=== PATIENT | male | born 1960 | race Caucasian/White ===

== ENCOUNTER 2017-10-20 06:35 | Emergency (ER) | payer BC ==
[~2017-10-20] VITALS: Ht 172.7 cm; Wt 108.0 kg
[2017-10-20 08:22] LABS: HEMATOCRIT 41.8 % (38.0-50.0); HEMOGLOBIN 15.4 G/DL (12.5-16.6); MCH 33.2 PG (29.0-34.0); MCHC 36.8 G/DL (30.0-36.0); MCV 90.1 FL (86-99); PLATELET COUNT 225 K/uL (156-360); RBC DIS.WIDTH-CV 12.6 % (11.8-14.6); RBC DIS.WIDTH-SD 41.6 % (39-53); RED BLOOD COUNT 4.64 M/uL (4.00-5.50); WHITE BLOOD COUNT 8.5 K/uL (4.1-10.2)
[2017-10-20 08:41] LABS: CHLORIDE 102 MEQ/L (99-109); SODIUM 135 MEQ/L (136-147)
[2017-10-20 08:46] LABS: CREATININE 0.8 MG/DL (0.6-1.3); GFR ESTIMATE (CALCULATED) > 59 mL/min/ (58.99-99999); GLUCOSE 93 mg/dL (70-99); UREA NITROGEN (BUN) 11 mg/dL (9-23)
[2017-10-20] MEDS ORDERED: TAMIFLU75 MG PO (09:33)
[2017-10-20 09:45] VITALS: BP 117/83
== END 2017-10-20 09:52 | disposition home or self-care (01) ==
LOC: EME 06:35
PROVIDERS: Emergency Medicine
DX: J10.1 Influenza due to other identified influenza virus with other respiratory manifestations (principal); E87.6 Hypokalemia; M06.9 Rheumatoid arthritis, unspecified; I10 Essential (primary) hypertension
CPT/HCPCS: 80048; 85027; 87502; 99281; 99284